=== PATIENT | female | born 1990 | race Caucasian/White ===

== ENCOUNTER 2020-10-22 13:59 | Outpatient (REF) | payer OTHER, SELFPAY ==
[2020-10-23 08:51] LABS: BV Int Neg Control Negative (Negative); BV Int Pos Control Positive (Positive)
[2020-10-23 09:02] LABS: CT PCR NOT DETECTED (Not Detect.); NG PCR NOT DETECTED (Not Detect.)
== END 2020-10-22 14:00 | disposition home or self-care (01) ==
LOC: HO.LAB 13:59
PROVIDERS: Visit Provider Advanced Practice Midwife
DX: Z01.411 Encounter for gynecological examination (general) (routine) with abnormal findings (principal); Z11.3 Encounter for screening for infections with a predominantly sexual mode of transmission; Z20.2 Contact with and (suspected) exposure to infections with a predominantly sexual mode of transmission; N88.8 Other specified noninflammatory disorders of cervix uteri; Z87.42 Personal history of other diseases of the female genital tract
CPT/HCPCS: 81025; 87480; 87491; 87510; 87591; 87660; 88142; 99202

== ENCOUNTER 2020-10-23 11:07 | Outpatient (REF) | payer OTHER, SELFPAY ==
[2020-10-23 12:21] LABS: Hematocrit 38.4 % (37-47); Hemoglobin 12.7 g/dl (12.0-16.0); Mean Corpuscular HGB Conc 33.1 g/dl (31.0-35.0); Mean Corpuscular Hemoglobin 28.5 pg (27.0-33.0); Mean Corpuscular Volume 86.3 fL (80-98); Platelet Count 230 X10*3/uL (160-400); Red Blood Count 4.45 X10*6/uL (4.20-5.50); Red Cell Distribution Width 12.8 % (11.0-16.0); White Blood Count 5.4 X10*3/uL (4.8-10.8)
[2020-10-23 13:05] LABS: Thyroid Stimulating Hormone 0.58 uIU/mL (0.32-4.0)
== END 2020-10-23 11:08 | disposition home or self-care (01) ==
LOC: HO.LAB 11:07
PROVIDERS: Visit Provider Advanced Practice Midwife
DX: N88.8 Other specified noninflammatory disorders of cervix uteri (principal); Z87.42 Personal history of other diseases of the female genital tract; Z97.5 Presence of (intrauterine) contraceptive device
CPT/HCPCS: 36415; 84443; 85027

== ENCOUNTER 2020-11-11 11:11 | Outpatient (REF) | payer OTHER, SELFPAY ==
--- NOTE | ~2020-11-11 | US_ITS ---
EXAMINATION: US PELVIC AND TRANSVAGINAL CLINICAL INFORMATION: Irregular bleeding. COMPARISON: None. TECHNIQUE: Transabdominal and transvaginal imaging was obtained. FINDINGS: The uterus is anteverted measuring 7.8 x 3.7 x 5.6 cm. No myometrial lesion. IUD within the endometrium in appropriate position. Endometrial thickness measures 0.6 cm. Sonographically unremarkable right ovary measuring 3.7 x 1.9 x 2.6 m for a volume of 9.5 mm. Probable corpus luteum measuring 1.4 cm. Sonographically unremarkable left ovary measuring 3.4 x 1.3 x 2.2 cm for a volume of 3.5 mm. US/US pelvic and transvaginal IMPRESSION: 1. IUD in appropriate position within the endometrium. 2. Probable right ovarian corpus luteum measuring 1.4 cm. Sonographically unremarkable left ovary.
== END 2020-11-11 11:12 | disposition home or self-care (01) ==
LOC: HO.US 11:11
PROVIDERS: Visit Provider Advanced Practice Midwife
DX: N88.8 Other specified noninflammatory disorders of cervix uteri (principal); Z97.5 Presence of (intrauterine) contraceptive device; Z87.42 Personal history of other diseases of the female genital tract
CPT/HCPCS: 76830; 76856

== ENCOUNTER → 2020-11-25 15:43 | Outpatient (BNVA) | payer OTHER, SELFPAY | PROVIDERS: Visit Provider Advanced Practice Midwife ==

== ENCOUNTER 2022-10-05 14:40 | Outpatient (REF) | payer OTHER, SELFPAY ==
[2022-10-06 03:27] LABS: CT PCR NOT DETECTED (Not Detect.); NG PCR NOT DETECTED (Not Detect.)
[2022-10-06 13:40] LABS: BV Int Neg Control Negative (Negative); BV Int Pos Control Positive (Positive)
[2022-10-11 09:44] LABS: HPV mRNA E6/E7 rflx Not Detected (Not Detected)
== END 2022-10-05 14:41 | disposition home or self-care (01) ==
LOC: HO.LNP 14:40
PROVIDERS: Visit Provider Advanced Practice Midwife
DX: Z01.419 Encounter for gynecological examination (general) (routine) without abnormal findings (principal); Z11.51 Encounter for screening for human papillomavirus (HPV); N89.8 Other specified noninflammatory disorders of vagina; Z87.42 Personal history of other diseases of the female genital tract
CPT/HCPCS: 0353U; 87480; 87510; 87624; 87660; 88142

== ENCOUNTER 2022-10-06 08:51 | Outpatient (REF) | payer OTHER, SELFPAY | END 2022-10-06 08:52 | disposition home or self-care (01) | LOC: HO.LNP 08:51 | PROVIDERS: Visit Provider Advanced Practice Midwife | DX: Z13.89 Encounter for screening for other disorder (principal) ==